=== PATIENT | female | born 2000 | race Caucasian/White ===

== ENCOUNTER 2020-05-25 18:52 | Emergency (ER) | payer OTHER ==
[~2020-05-25] VITALS: Ht 165.1 cm; Wt 87.5 kg
[2020-05-25] MEDS ORDERED: DICLOFENAC SODI75 MG PO (21:10)
== END 2020-05-25 21:48 | disposition home or self-care (01) ==
LOC: ER 18:52
DX: S43.015A Anterior dislocation of left humerus, initial encounter (principal); X50.0XXA Overexertion from strenuous movement or load, initial encounter; Y93.68 Activity, volleyball (beach) (court); Y92.59 Other trade areas as the place of occurrence of the external cause; Y99.8 Other external cause status